=== PATIENT | male | born 1985 | race Caucasian/White ===

== ENCOUNTER 2018-12-07 16:33 | Emergency (ER) | payer OTHER ==
[~2018-12-07] VITALS: Ht 185.4 cm; Wt 110.8 kg
[2018-12-07 16:36] VITALS: Ht 185.4 cm; Wt 110.8 kg
[2018-12-07 18:53] LABS: BASOPHIL % 0.4 % (0-2); PLATELET COUNT 269 x10^3mcL (130-400); RED CELL DISTRIBUTION WIDTH 12.6 % (11.5-14.5)
[2018-12-07 18:54] LABS: CALCIUM 9.6 mg/dL (8.5-10.1); CARBON DIOXIDE 24.8 mmol/L (21-32); CHLORIDE SERUM 104 mmol/L (98-107); GFR1 > 60 mL/min; GLUCOSE SERUM 84 mg/dL (74-106); POTASSIUM SERUM 4.2 mmol/L (3.5-5.1); SODIUM SERUM 142 mmol/L (136-145)
[2018-12-07 18:57] LABS: ALBUMIN 4.2 g/dL (3.4-5.0); ALKALINE PHOSPHATASE 79 U/L (46-116); ALT/SGPT 23 U/L (16-63); AST/SGOT 12 U/L (15-37); BILIRUBIN TOTAL 0.58 mg/dL (0.20-1.00); MAGNESIUM 2.3 mg/dL (1.8-2.4)
[2018-12-07 19:00] LABS: TOTAL PROTEIN, SERUM 8.3 g/dL (6.4-8.2)
[2018-12-07 19:22] LABS: FREE T4 0.92 ng/dL (0.76-1.46); FREE THYROXINE INDEX 2.3 ug/dL (1.4-4.5); T4(THYROXINE) 7.3 ug/dL (4.7-13.3)
[2018-12-07 19:23] LABS: T3 TOTAL 1.08 ng/mL
[2018-12-07 19:42] LABS: AMPHETAMINE QUAL UR NONE DETECTED (See below)
[2018-12-07 22:24] VITALS: BP 157/96
== END 2018-12-07 22:24 | disposition home or self-care (01) ==
LOC: ED 16:33 → EDBD 16:33 → ED 22:24
PROVIDERS: Emergency Medicine
DX: R00.2 Palpitations (principal); M10.041 Idiopathic gout, right hand; F41.9 Anxiety disorder, unspecified
CPT/HCPCS: 36415; 84439; Q0092